=== PATIENT | female | born 1965 | race Caucasian/White ===

== ENCOUNTER 2019-08-07 10:42 | Inpatient (IN) ==
[2019-08-07 11:05] LABS: Bilirubin,Urine Negative (Negative); Blood,Urine Negative (Negative); Clarity,Urine Clear (Clear); Color,Urine Yellow (Yellow); Glucose,Urine (UA) Normal (Normal); Ketones,Urine Negative (Negative); Leukocyte Esterase,Urine Negative (Negative); Nitrite,Urine Negative (Negative); Protein,Urine Negative (Neg-Trace); Specific Gravity,Urine 1.005 (1.010-1.025); Urobilinogen,Urine Normal (Normal)
[2019-08-07 11:09] LABS: Basophils # 0.1 K/mcL (0.0-0.2); Basophils % 1.4 %; Eosinophils % 0.3 %; Hematocrit 38.3 % (35.3-44.9); Hemoglobin 13.2 g/dL (11.5-15.4); Immature Granulocytes % 0.3 % (0-4); Lymphocytes # 0.7 K/mcL (0.6-4.6); Lymphocytes % 18.5 %; Mean Corpuscular HGB Conc 34.5 g/dL (31.6-35.5); Mean Corpuscular Hemoglobin 30.8 pg (28.0-33.3); Mean Corpuscular Volume 89.3 fL (83.0-100.0); Mean Platelet Volume 9.1 fL (9.4-12.4); Monocytes # 0.4 K/mcL (0.0-1.3); Neutrophils # 2.5 K/mcL (1.6-8.9); Platelet Count 302 K/mcL (140-400); Red Blood Count 4.29 M/mcL (3.82-4.97); Red Cell Distribution Width 12.2 % (11.5-14.5); Segmented Neutrophils % 68.5 %; White Blood Count 3.6 K/mcL (4.3-11.1)
[2019-08-07 11:17] LABS: Estimated Average Glucose 114 mg/dl
[2019-08-07 11:29] LABS: Acetaminophen < 10 mcg/mL (10-20); BUN/Creatinine Ratio 14 (6-26); Blood Urea Nitrogen 10 mg/dL (6-20); Calcium 9.6 mg/dL (8.6-10.3); Carbon Dioxide 27 mEq/L (23-29); Chloride 100 mEq/L (98-107); Chol/HDL Ratio 3.2 (0-4.9); Cholesterol 255 mg/dL (< 200); Ethanol < 10 mg/dL (Less than 10); Glucose 116 mg/dL (70-105); HDL Cholesterol 79 mg/dL (40-59); LDL Cholesterol,Calculated 159 mg/dL (0-99); Osmolality,Calculated 280 (280-300); Potassium 3.9 mEq/L (3.5-5.1); Salicylate < 2.5 mg/dL (15.0-30.0); Sodium 135 mEq/L (136-145); Triglycerides 85 mg/dL (< 150); eGFR For African Americans > 60 (> 60); eGFR For Non-African Americans > 60 (> 60)
[2019-08-07 11:30] LABS: Amphetamine Screen,Urine Negative ng/mL (Cutoff=1000); Barbiturate Screen,Urine Negative ng/mL (Cutoff=200); Benzodiazepines Screen,Urine Positive ng/mL (Cutoff=200); Cannabinoid Screen,Urine Negative ng/mL (Cutoff = 50); Cocaine Screen,Urine Negative ng/mL (Cutoff= 300); Opiate Screen,Urine Negative ng/mL (Cutoff=300); Phencyclidine Screen,Urine Negative ng/mL (Cutoff=25)
[2019-08-07] MEDS ORDERED: Ibuprofen 400 MG TABLET PO PRN (15:22)
[2019-08-07] MEDS ORDERED: Haloperidol Lactate 5 MG/ML VIAL IM PRN (15:22)
[2019-08-07] MEDS ORDERED: *HR* LORazepam 2 MG/ML VIAL IM PRN (15:22)
[2019-08-07] MEDS ORDERED: hydrOXYzine pamoate 25 MG CAPSULE PO PRN (15:22)
[2019-08-07] MEDS ORDERED: MOM Conc 10 ML UD.LIQ PO PRN (15:22)
[2019-08-07] MEDS ORDERED: *HR* LORazepam 1 MG TABLET PO PRN (15:22)
[2019-08-07] MEDS ORDERED: Mag Hydrox/Al Hydrox/Simeth 30 ML UDC PO PRN (15:22)
[2019-08-07] MEDS: traZODone 50 MG TABLET PO PRN (20:46)
[2019-08-07] MEDS ORDERED: Venlafaxine XR (24 HR) 150 MG CAP.ER.24H PO SCH (21:00)
[2019-08-07] MEDS ORDERED: Venlafaxine XR (24 HR) 75 MG CAP.ER.24H PO SCH (21:00)
[2019-08-08] MEDS: traZODone 50 MG TABLET PO PRN (02:08)
[2019-08-08] MEDS: ALPRAZolam 0.5 MG TABLET PO PRN ×2 (05:42→20:10)
[2019-08-08] MEDS: ARIPiprazole 5 MG TABLET PO SCH (10:46)
[2019-08-09] MEDS: ARIPiprazole 5 MG TABLET PO SCH (08:47)
[2019-08-09] MEDS: Venlafaxine XR (24 HR) 75 MG CAP.ER.24H PO SCH (08:47)
[2019-08-09] MEDS: Venlafaxine XR (24 HR) 150 MG CAP.ER.24H PO SCH (08:48)
[2019-08-09] MEDS: ALPRAZolam 0.5 MG TABLET PO PRN (21:35)
[2019-08-10] MEDS: Venlafaxine XR (24 HR) 75 MG CAP.ER.24H PO SCH (08:38)
[2019-08-10] MEDS: ARIPiprazole 5 MG TABLET PO SCH (08:38)
[2019-08-10] MEDS: Venlafaxine XR (24 HR) 150 MG CAP.ER.24H PO SCH (08:39)
[2019-08-10 09:18] VITALS: BP 124/64
== END 2019-08-10 11:04 | disposition home or self-care (01) | DRG 885 ==
LOC: EMEROOARM 10:42 → 1ANU 13:23
PROVIDERS: ADMIT Psychiatry & Neurology Psychiatry; ATTEND Psychiatry & Neurology Psychiatry